=== PATIENT | female | born 1940 | race Caucasian/White ===

== ENCOUNTER 2019-08-25 12:48 | Emergency (ER) | payer MEDICARE ==
[~2019-08-25] VITALS: Ht 154.9 cm; Wt 68.2 kg
[2019-08-25 12:52] VITALS: Ht 154.9 cm; Wt 68.2 kg
[2019-08-25 13:32] LABS: BASOPHILS 0.2 % (0-2); EOSINOPHILS 0.3 % (0-7); HEMATOCRIT 45.4 % (36.0-48.0); HEMOGLOBIN 15.1 g/dL (12-16); IMMATURE GRANULOCYTES 0.3 % (0-5); LYMPHOCYTES 10.9 % (15-50); MCH 30.6 pg (26.0-34.0); MCHC 33.3 g/dL (31.0-37.0); MCV 91.9 fL (80.0-100.0); MEAN PLATELET VOLUME 9.3 fL (7.4-10.4); MONOCYTES 0.9 % (2-11); NEUTROPHILS 87.4 % (40-80); PLATELET COUNT 402 10x3/uL (130-400); RBC 4.94 10x6/uL (4.00-5.40); WBC 10.6 10x3/uL (4.8-10.8)
[2019-08-25 13:44] LABS: ANION GAP 12.1 mmol/L (8-16); CALCIUM 8.8 mg/dL (8.5-10.1); CARBON DIOXIDE 26.9 mmol/L (21.0-32.0); CREATININE - SERUM 1.2 mg/dL (0.6-1.3)
[2019-08-25 13:50] LABS: BILIRUBIN - TOTAL 0.33 mg/dL (0.2-1.3); PROTEIN - SERUM 8.2 g/dL (6.4-8.2)
[2019-08-25 15:14] LABS: BILIRUBIN NEGATIVE (NEGATIVE); GLUCOSE NEGATIVE (NEGATIVE); KETONE NEGATIVE (NEGATIVE); NITRITE POSITIVE (NEGATIVE); SPECIFIC GRAVITY 1.015 (1.005-1.020); UROBILINOGEN NORMAL (NORMAL)
[2019-08-25 15:15] LABS: BACTERIA MANY /hpf (NEGATIVE); EPITHELIAL CELLS 0-5 /hpf (0-5); RED CELLS - URINE 0-5 /hpf (0-5); WHITE CELLS - URINE 0-5 /hpf (NEGATIVE)
[2019-08-25] MEDS ORDERED: ZOFRAN ODT4 MG/UDTAB PO (16:06)
[2019-08-25 16:20] VITALS: BP 127/83
== END 2019-08-25 16:20 | disposition home or self-care (01) ==
LOC: D.ER 12:48
PROVIDERS: Family Medicine
DX: R11.2 Nausea with vomiting, unspecified (principal); G89.29 Other chronic pain; M25.551 Pain in right hip; M25.512 Pain in left shoulder; J44.9 Chronic obstructive pulmonary disease, unspecified; Z72.0 Tobacco use; E07.9 Disorder of thyroid, unspecified